=== PATIENT | female | born 1990 | race Two or more races ===

== ENCOUNTER 2017-07-29 11:03 | Emergency (ER) | payer OTHER ==
[~2017-07-29] VITALS: Ht 167.6 cm; Wt 59.0 kg
[2017-07-29 11:05] VITALS: BP 137/80
--- NOTE | 2017-07-29 11:37 | NUR ---
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 NGUYEN.
== END 2017-07-29 11:47 | disposition home or self-care (01) ==
LOC: ER 11:04
DX: R09.89 Other specified symptoms and signs involving the circulatory and respiratory systems (principal); J45.909 Unspecified asthma, uncomplicated; Z88.0 Allergy status to penicillin
CPT/HCPCS: A4606; Z7502; Z7610

== ENCOUNTER 2017-10-23 12:17 | Emergency (ER) | payer OTHER ==
[~2017-10-23] VITALS: Ht 167.6 cm; Wt 63.5 kg
[2017-10-23 12:17] VITALS: BP 125/69
== END 2017-10-23 13:32 | disposition home or self-care (01) ==
LOC: ER 12:22
DX: S90.32XA Contusion of left foot, initial encounter (principal); J45.909 Unspecified asthma, uncomplicated; Z88.0 Allergy status to penicillin; W01.0XXA Fall on same level from slipping, tripping and stumbling without subsequent striking against object, initial encounter; Y93.89 Activity, other specified; Y92.89 Other specified places as the place of occurrence of the external cause; Y99.8 Other external cause status
CPT/HCPCS: 73630; 99284; A4606; Z7610

== ENCOUNTER 2018-07-20 17:30 | Emergency (ER) | payer MEDICAID, OTHER ==
[~2018-07-20] VITALS: Ht 167.6 cm; Wt 63.5 kg
[2018-07-20] MEDS ORDERED: IV NS 0.9% 1,000 ML BAG IV ONE (18:30)
[2018-07-20] MEDS ORDERED: ALPRAZOLAM 0.5 MG TABLET PO ONE (18:30)
[2018-07-20 18:34] LABS: BASOPHILS % (AUTO) 0.3 % (0.0-2.0); HEMATOCRIT 41 % (33-45); HEMOGLOBIN 13.9 g/dL (11.5-14.8); LYMPHOCYTES % (AUTO) 11.5 % (20.0-44.0); MEAN CORPUSCULAR HGB CONC 34 g/dl (31.0-36.0); MEAN CORPUSCULAR VOLUME 87 fL (82-100); MONOCYTES # (AUTO) 0.7 /CMM (0.1-1.30); MONOCYTES % (AUTO) 7.8 % (2.0-12.0); NEUTROPHILS # (AUTO) 7.1 /CMM (1.8-8.9); NEUTROPHILS % (AUTO) 80.4 % (43.0-81.0); PLATELET COUNT (AUTO) 224 /CMM (150-450); RED BLOOD CELL COUNT(AUTO) 4.71 MIL/uL (4.0-5.2); WHITE BLOOD COUNT (AUTO) 8.8 K/uL (4.3-11.0)
[2018-07-20] MEDS ORDERED: ALPRAZOLAM 0.5 MG TABLET ONE (18:39)
[2018-07-20 18:41] LABS: CALCIUM, SERUM 9.3 mg/dL (8.5-10.1); CREATININE 0.8 mg/dL (0.6-1.3); POTASSIUM 3.4 mmol/L (3.5-5.1)
--- NOTE | 2018-07-20 18:45 | NUR ---
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 PT AAOX4, VSS. DENIES CP, N/V, DIZZINESS, WEAKNESS @ THIS TIME. PT SEEN & EVAL'D BY DR. PATINO. PLACED ON [employer] EQUIPMENT. MEDICATED FOR ANXIETY & WILL CONT TO MONITOR.
[2018-07-20 18:46] LABS: ALBUMIN 4.3 g/dL (3.4-5.0); BILIRUBIN,DIRECT 0.2 mg/dL (0.0-0.2); BILIRUBIN,TOTAL 0.9 mg/dL (0.2-1.0); TOTAL PROTEIN, SERUM 7.8 g/dL (6.4-8.2)
--- NOTE | 2018-07-20 19:10 | NUR ---
RECEIVED REPORT FROM PAGE VELASQUEZ FOR [facility]
--- NOTE | 2018-07-20 19:26 | NUR ---
URINE COLLECTED, CALLED LAB FOR F[employer] DIVERSIFIED CROPS
[2018-07-20 19:33] LABS: APPEARANCE,URINE Clear (CLEAR); BILIRUBIN,URINE Negative (NEGATIVE); BLOOD, URINE Negative Ery/uL (NEGATIVE); COLOR,URINE Yellow (YELLOW); KETONES,URINE >=160 (NEGATIVE); LEUKOCYTE ESTERASE ,URINE Negative (NEGATIVE); NITRITE, URINE Negative (NEGATIVE); PH,URINE 6.5 (5.0-8.0); PROTEIN,URINE Negative (NEGATIVE); UGLUCOSE Negative (NEGATIVE); UROBILINOGEN,URINE 0.2 EU/dL (0.2)
[2018-07-20 19:43] LABS: BACTERIA,URINE Few /HPF (None Seen); RBC,URINE 0-2 /HPF (0-2); SQUAMOUS EPITHELIAL CELL,UR Few /HPF (None Seen); WBC,URINE 0-2 /HPF (0-3)
--- NOTE | 2018-07-20 20:49 | NUR ---
Patient discharged to home in stable condition. Written and verbal after care instructions given. Patient verbalizes understanding of instruction. IV removed. Catheter intact and site benign. Pressure and 4x4 applied to site. No bleeding noted. Pt ambulatory with a steady gait. Instructed not to drive, left with family
[2018-07-20 20:50] VITALS: BP 125/78
== END 2018-07-20 20:50 | disposition home or self-care (01) ==
LOC: ER 17:31
DX: F41.9 Anxiety disorder, unspecified (principal); J45.909 Unspecified asthma, uncomplicated; F32.9 Major depressive disorder, single episode, unspecified; Z88.0 Allergy status to penicillin
CPT/HCPCS: 36415; 80048; 80076; 81001; 84703; 85025; 99284; A4606; J7030; 81000-TC